=== PATIENT | female | born 1985 | race Caucasian/White ===

== ENCOUNTER 2017-01-13 23:27 | Emergency (ER) | payer OTHER ==
[~2017-01-13] VITALS: Ht 157.5 cm; Wt 77.0 kg
[2017-01-13] MEDS ORDERED: PROP10 PO (23:37)
[2017-01-14 00:45] VITALS: BP 118/72
== END 2017-01-14 01:18 | disposition home or self-care (01) ==
LOC: EMS 23:29 → EDSEX 23:29 → EMS 01-14 01:18
DX: S09.90XA Unspecified injury of head, initial encounter (principal); Y04.0XXA Assault by unarmed brawl or fight, initial encounter; Y93.89 Activity, other specified; Y92.89 Other specified places as the place of occurrence of the external cause; Y99.8 Other external cause status
CPT/HCPCS: 99281

== ENCOUNTER 2017-05-27 09:53 | Emergency (ER) | payer OTHER ==
[~2017-05-27] VITALS: Ht 157.5 cm; Wt 77.3 kg
[~2017-05-27 09:53] MED LIST: PROP10TA73 PO
[2017-05-27] MEDS ORDERED: PARO10TA89 PO (10:31)
[2017-05-27] MEDS ORDERED: HYDR-3110 PO (10:31)
[2017-05-27] MEDS ORDERED: IBUPROFEN 600 MG TABLET PO ONE (11:00)
[2017-05-27 12:08] VITALS: BP 133/76
== END 2017-05-27 12:38 | disposition home or self-care (01) ==
LOC: EMS 09:54
DX: J11.1 Influenza due to unidentified influenza virus with other respiratory manifestations (principal); F12.90 Cannabis use, unspecified, uncomplicated
CPT/HCPCS: 93005; 99284

== ENCOUNTER 2018-01-04 18:49 | Emergency (ER) | payer OTHER ==
[~2018-01-04] VITALS: Ht 157.5 cm; Wt 75.0 kg
[~2018-01-04 18:49] MED LIST changes: +HYDR-3110 PO; +PARO10TA89 PO; -PROP10TA73 PO
[2018-01-04 19:40] LABS: BASOPHILS % (AUTO) 0.6 % (0.0-2.0); EOSINOPHILS % (AUTO) 0.6 % (1.0-6.0); HEMATOCRIT 39.6 % (36-46); HEMOGLOBIN 13.4 g/dL (12.0-16.0); LYMPHOCYTES # (AUTO) 2.2 K/uL (1.0-4.8); LYMPHOCYTES % (AUTO) 22.3 % (22.0-44.0); MEAN CORPUSCULAR HEMOGLOBIN 28.4 pg (26.0-34.0); MEAN CORPUSCULAR HGB CONC 33.9 G/dL (31.0-37.0); MEAN CORPUSCULAR VOLUME 84 fL (80-100); MONOCYTES # (AUTO) 0.5 K/uL (0.1-1.0); MONOCYTES % (AUTO) 4.8 % (2.0-9.0); NEUTROPHILS # (AUTO) 7.1 K/uL (1.8-7.7); NEUTROPHILS % (AUTO) 71.7 % (40.0-70.0); PLATELET COUNT (AUTO) 356 K/uL (150-450); RED BLOOD CELL COUNT(AUTO) 4.72 MIL/uL (4.00-5.20); RED CELL DISTRIBUTION WIDTH 14.4 % (11.5-14.5)
[2018-01-04 19:57] LABS: ANION GAP 8 mmol/L (8-16); CALCIUM, TOTAL 9.1 mg/dL (8.8-10.5); CARBON DIOXIDE 30 mmol/L (22-29); CHLORIDE 104 mmol/L (98-107); CREATININE 0.94 mg/dL (0.60-1.30); GLOMERULAR FILTR. RATE CALC > 60 mL/min (>60); GLUCOSE,RANDOM 136 mg/dL (70-110); POTASSIUM 3.6 mmol/L (3.5-5.1); SODIUM SERUM 142 mmol/L (136-145); UREA NITROGEN, BLOOD 14 mg/dL (7-18)
[2018-01-04 20:03] LABS: ALANINE AMINOTRANSFERASE 39 U/L (12-78); ALBUMIN 3.6 g/dL (3.4-5.0); ALKALINE PHOSPHATASE 83 U/L (46-116); ASPARTATE AMINOTRANSFERASE 24 U/L (15-37); BILIRUBIN,TOTAL 0.3 mg/dL (0.1-1.0); TOTAL PROTEIN, SERUM 7.4 g/dL (6.4-8.2)
[2018-01-04 21:29] VITALS: BP 122/92
== END 2018-01-04 22:34 | disposition left against medical advice (07) ==
LOC: EMS 18:50
DX: R07.9 Chest pain, unspecified (principal); Z53.21 Procedure and treatment not carried out due to patient leaving prior to being seen by health care provider
CPT/HCPCS: 93005

== ENCOUNTER 2018-03-24 21:46 | Emergency (ER) | payer OTHER ==
[~2018-03-24] VITALS: Ht 154.9 cm; Wt 79.5 kg
[2018-03-24] MEDS ORDERED: LORazepam 2 MG TABLET PO ONE (23:45)
[2018-03-25 00:59] VITALS: BP 114/64
== END 2018-03-25 02:08 | disposition home or self-care (01) ==
LOC: EMS 21:47
DX: F41.9 Anxiety disorder, unspecified (principal); Z79.899 Other long term (current) drug therapy
CPT/HCPCS: 93005

== ENCOUNTER 2018-04-13 15:03 | Emergency (ER) | payer OTHER ==
[~2018-04-13] VITALS: Ht 154.9 cm; Wt 79.5 kg
[2018-04-13] MEDS ORDERED: LORazepam 1 MG TABLET PO ONE (16:00)
[2018-04-13 18:50] VITALS: BP 148/98
== END 2018-04-13 18:52 | disposition home or self-care (01) ==
LOC: EMS 15:04
DX: F41.9 Anxiety disorder, unspecified (principal); F12.90 Cannabis use, unspecified, uncomplicated
CPT/HCPCS: 93005

== ENCOUNTER 2018-08-02 18:53 | Emergency (ER) | payer OTHER ==
[~2018-08-02] VITALS: Ht 177.8 cm; Wt 75.0 kg
[2018-08-02 19:01] VITALS: BP 133/95
== END 2018-08-02 21:00 | disposition left against medical advice (07) ==
LOC: EMS 18:54
DX: F41.9 Anxiety disorder, unspecified (principal); R06.82 Tachypnea, not elsewhere classified; F17.210 Nicotine dependence, cigarettes, uncomplicated; F12.90 Cannabis use, unspecified, uncomplicated; Z53.21 Procedure and treatment not carried out due to patient leaving prior to being seen by health care provider

== ENCOUNTER 2018-10-01 19:11 | Emergency (ER) | payer OTHER ==
[~2018-10-01] VITALS: Ht 157.5 cm; Wt 77.3 kg
[2018-10-01] MEDS ORDERED: BUSP5TAB20 PO (19:22)
[2018-10-01 21:15] VITALS: BP 122/85
[2018-10-01] MEDS ORDERED: PSEUDOEPHEDRINE HCL 30 MG TABLET PO ONE (21:15)
[2018-10-01] MEDS ORDERED: IBUPROFEN 600 MG TABLET PO ONE (21:15)
== END 2018-10-01 21:30 | disposition home or self-care (01) ==
LOC: EMS 19:13
DX: J30.9 Allergic rhinitis, unspecified (principal); J32.9 Chronic sinusitis, unspecified; F41.9 Anxiety disorder, unspecified; F17.200 Nicotine dependence, unspecified, uncomplicated; F12.90 Cannabis use, unspecified, uncomplicated